=== PATIENT | female | born 1990 ===

== ENCOUNTER 2021-08-16 11:28 | Inpatient (IN) | payer OTHER ==
[2021-08-16] MEDS ORDERED: CITRIC ACID/SODIUM CITRATE 30 ML UNIT-DOSE CUP PO ONE ×2 (11:30→12:00)
[2021-08-16] MEDS ORDERED: ELECTROLYTE-148 SOLN 500 ML IV ONE (11:30)
[2021-08-16] MEDS ORDERED: ELECTROLYTE-148 SOLN 1,000 ML IV SCH ×2 (12:00→13:15)
[2021-08-16] MEDS ORDERED: ELECTROLYTE-148 SOLN 1,000 ML IV ONE (12:00)
[2021-08-16] MEDS ORDERED: ONDANSETRON 4 MG/2 ML VIAL IVPUSH PRN (12:23)
[2021-08-16 12:50] VITALS: BMI 33.1
[2021-08-16] MEDS ORDERED: morphine SULFATE (PF) 1 MG/2 ML SYRINGE ONE (13:02)
[2021-08-16] MEDS ORDERED: ceFAZolin SODIUM 1 GM VIAL ONE (13:27)
[2021-08-16] MEDS ORDERED: ePHEDrine SULFATE 50 MG/1 ML AMPULE ONE (13:49)
[2021-08-16] MEDS ORDERED: ONDANSETRON 4 MG/2 ML VIAL ONE (13:52)
[2021-08-16] MEDS ORDERED: TRIAMCINOLONE ACET 40MG/1ML VIAL IM ONE (14:00)
[2021-08-16] MEDS ORDERED: OXYTOCIN 10 UNITS/ML VIAL ONE ×2 (14:03→14:05)
[2021-08-16] MEDS ORDERED: IBUPROFEN 800 MG/8 ML IJ IVPB PRN (15:19)
[2021-08-16] MEDS ORDERED: SIMETHICONE 80 MG TAB.CHEW (FP) PO PRN (15:19)
[2021-08-16] MEDS ORDERED: ACETAMINOPHEN 325 MG TABLET (FP) PO PRN (15:19)
[2021-08-16] MEDS ORDERED: METHYLERGONOVINE MALEATE 0.2 MG/1 ML AMP IM PRN (15:19)
[2021-08-16] MEDS ORDERED: SENNOSIDES/DOCUSATE COMBO (SENNA PLUS) TABLET (UD) PO PRN (15:19)
[2021-08-16] MEDS ORDERED: IBUPROFEN 600 MG TABLET (FP) PO PRN (15:19)
[2021-08-16] MEDS ORDERED: OXYTOCIN 20 UNITS in 0.9% NS 20 UNIT/1,000 ML INFUS.BAG IV SCH (15:30)
[2021-08-16] MEDS ORDERED: OXYTOCIN 20 UNITS in 0.9% NS 20 UNIT/1,000 ML INFUS.BAG IV ONE (17:12)
[2021-08-16] MEDS ORDERED: LABETALOL HCL 200 MG TABLET (FP) ONE (17:12)
[2021-08-16] MEDS: LABETALOL HCL 200 MG TABLET (FP) PO SCH ×2 (17:20→21:48)
[2021-08-16] MEDS: NIFEdipine E.R. 30 MG TABLET PO SCH (20:09)
[2021-08-17] MEDS ORDERED: oxyCODONE HCL 5 MG TABLET PO PRN ×2 (03:19)
[2021-08-17] MEDS: LABETALOL HCL 200 MG TABLET (FP) PO SCH ×3 (06:05→21:28)
[2021-08-17 08:12] LABS: BASO % 0.3 % (0-2.0); HEMATOCRIT 37.1 % (32.4-45.2); HEMOGLOBIN 12.1 GM/dL (10.7-15.3); LYMPH % 14.1 % (8-40); MCH 27.9 pg (25.7-33.7); MCHC 32.5 g/dl (32.0-36.0); MEAN CELL VOLUME 85.9 fl (80-96); MEAN PLT VOLUME 8.8 fl (7.5-11.1); MONO % 4.3 % (3.8-10.2); NEUT % 81.3 % (42.8-82.8); PLATELET COUNT 256 10^3/uL (134-434); RBC 4.32 M/mm3 (3.60-5.2); RDW 14.6 % (11.6-15.6); WHITE BLOOD COUNT 13.4 K/mm3 (4.0-10.0)
[2021-08-17] MEDS ORDERED: DIPHTH,PERTUSS(ACELL),TET 0.5 ML DISP.SYRIN IM ONE (10:00)
[2021-08-17] MEDS: PRENATAL VITAMINS W/ FOLIC ACID TABLET (FP) PO SCH (12:04)
[2021-08-17] MEDS: NIFEdipine E.R. 30 MG TABLET PO SCH (12:04)
[2021-08-17] MEDS ORDERED: BISACODYL 10 MG SUPP.RECT RC PRN (15:19)
[2021-08-17] MEDS ORDERED: RHO(D) IMMUNE GLOBULIN 1,500 UNIT DISP.SYRIN IM ONE ×2 (16:08→16:15)
[2021-08-18] MEDS: LABETALOL HCL 200 MG TABLET (FP) PO SCH ×3 (06:21→22:13)
[2021-08-18] MEDS: PRENATAL VITAMINS W/ FOLIC ACID TABLET (FP) PO SCH (09:46)
[2021-08-18] MEDS: NIFEdipine E.R. 30 MG TABLET PO SCH (09:46)
[2021-08-19] MEDS: LABETALOL HCL 200 MG TABLET (FP) PO SCH ×3 (06:46→22:33)
[2021-08-19] MEDS: PRENATAL VITAMINS W/ FOLIC ACID TABLET (FP) PO SCH (11:04)
[2021-08-19] MEDS: NIFEdipine E.R. 30 MG TABLET PO SCH (11:05)
[2021-08-20] MEDS: LABETALOL HCL 200 MG TABLET (FP) PO SCH (06:21)
[2021-08-20 09:08] VITALS: BP 128/75; PULSE 65; TEMP 97.4
[2021-08-20] MEDS: PRENATAL VITAMINS W/ FOLIC ACID TABLET (FP) PO SCH (09:36)
[2021-08-20] MEDS: NIFEdipine E.R. 30 MG TABLET PO SCH (09:36)
== END 2021-08-20 13:02 | disposition home or self-care (01) | DRG 788 ==
LOC: JLDR 11:28 → J3W 17:33
PROVIDERS: ADMIT Obstetrics & Gynecology; ATTEND Obstetrics & Gynecology
PROC: 10D00Z1 Extraction of Products of Conception, Low, Open Approach (ICD-10-PCS; principal; 2021-08-16)
PROC: 0DNW0ZZ Release Peritoneum, Open Approach (ICD-10-PCS; 2021-08-16)
DX: O34.211 Maternal care for low transverse scar from previous cesarean delivery (principal); O16.4 Unspecified maternal hypertension, complicating childbirth; O36.5930 Maternal care for other known or suspected poor fetal growth, third trimester, not applicable or unspecified; O99.62 Diseases of the digestive system complicating childbirth; K66.0 Peritoneal adhesions (postprocedural) (postinfection); Z3A.35 35 weeks gestation of pregnancy; Z37.0 Single live birth
CPT/HCPCS: 36415; 85025; 85461; 86900; 86999; 88307-TC; 90715; J1561